=== PATIENT | male | born 1985 | race Two or more races ===

== ENCOUNTER 2018-09-11 14:16 | Emergency (ER) | payer OTHER ==
[~2018-09-11] VITALS: Ht 182.9 cm; Wt 102.1 kg
[2018-09-11 15:25] VITALS: BP 143/96
[2018-09-11] MEDS ORDERED: ETOMIDATE (2MG/ML) 20ML VIAL IV ONE ×2 (15:28→16:00)
[2018-09-11] MEDS ORDERED: HYDROcodone-ACET 10/325MG TAB PO ONE (16:00)
== END 2018-09-11 17:24 | disposition home or self-care (01) ==
LOC: ER 14:19
DX: S43.005A Unspecified dislocation of left shoulder joint, initial encounter (principal); F17.210 Nicotine dependence, cigarettes, uncomplicated; X58.XXXA Exposure to other specified factors, initial encounter; Y93.89 Activity, other specified; Y99.8 Other external cause status; Y92.89 Other specified places as the place of occurrence of the external cause
CPT/HCPCS: 23650; 73020; 73030